=== PATIENT | female | born 1990 | race Caucasian/White ===

== ENCOUNTER 2018-07-12 14:53 | Emergency (ER) | payer MEDICAID ==
--- NOTE | 2018-07-12 15:27 | EDM.PDOC ---
ED HPI GENERAL MEDICAL PROBLEM - General Chief Complaint: WAIST PRESSER Problem Stated Complaint: SPOTTING, MIGHT BE Time Seen by Provider: 07/12/18 15:21 Source of Information: Reports: Patient History Limitations: Reports: No Limitations - History of Present Illness INITIAL COMMENTS - FREE TEXT/NARRATIVE: HISTORY AND PHYSICAL: History of present illness: Patient is a 28-year-old female who presents to the emergency room with concerns of vaginal bleeding during . She states yesterday she took 4 home test all of which were positive. She noticed some light bleeding last evening which has continued into today. He has had some mild nausea and "upset stomach" She denies any fever, chills, chest pain, shortness of breath or cough. Denies any abdominal pain, vomiting, diarrhea, constipation or dysuria. She states she has had multiple problems with previous IUDs. February 2018 she had her last IUD "fall out". Since then she has had some days of light bleeding, which she stated "could have been my period" in March. She normally has irregular periods. Her OBGYN has instructed her how to use a diaphragm to prevent . , P:3 Review of systems: As per history of present illness and below otherwise all systems reviewed and negative. Past medical history: As per history of present illness and as reviewed below otherwise noncontributory. Surgical history: As per history of present illness and as reviewed below otherwise noncontributory. Social history: No reported history of drug or alcohol abuse. Family history: As per history of present illness and as reviewed below otherwise noncontributory. Physical exam: General: Well developed and well-nourished 28-year-old female. Alert and oriented. Nontoxic appearing and in no acute distress. HEENT: Atraumatic, normocephalic, pupils equal and reactive bilaterally, negative for conjunctival pallor or scleral icterus, mucous membranes moist, throat clear, neck supple, nontender, trachea midline. No drooling or trismus noted. No meningeal signs Lungs: Clear to auscultation, breath sounds equal bilaterally, chest nontender. Heart: S1S2, regular rate and rhythm without overt murmur Abdomen: Soft, nondistended, nontender. Negative for masses or hepatosplenomegaly. Negative for costovertebral tenderness. Pelvis: Stable nontender. Genitourinary: This was done with a courtesy car driver at the bedside and consent by the patient. External genitalia is within normal limits. Ears minimal amount of blood in the vaginal canal. The cervical os is closed with no current bleeding coming from the os. Patient tolerated well. Rectal: Deferred. Skin: Intact, warm, dry. No lesions or rashes noted. Extremities: Atraumatic, negative for cords or calf pain. Neurovascular unremarkable. Neuro: Awake, alert, oriented. Cranial nerves II through XII unremarkable. Cerebellum unremarkable. Motor and sensory unremarkable throughout. Exam nonfocal. Notes: O negative; will receive Rhogam injection. Otherwise labs within normal limits. Pelvic ultrasound shows a single IUP with tiny pole measuring 1.6 mm. Cardiac activity is not definitively seen as of yet. There is no subchorionic bleeding. She has measuring 5 weeks and 2 days. Quantitative hCG is 3045. I did share this information with the patient and informed her she needs to follow up with a primary care or WAIST PRESSER to have this repeated in 2 days. She states she has an appointment tomorrow with Dr. Talbot at [facility] and will inform her of today's visit. Supportive care measures were reviewed and discussed. Signs and symptoms that would prompt her to return to the emergency room were reviewed. She denies any further questions or concerns. Will be discharged home. Diagnostics: CBC, CMP, UA, urine , HCG quant, OB 1st trimester US, AB/RH Therapeutics: Salma ODT, RhoGam Impression: Threatened Miscarriage Plan: 1. Pelvic Rest (no sex, no tampons, etc...) until cleared by your OBGYN. 2. Tylenol as needed for pain management. 3. Please start a vitamin once daily. Establish with an OBGYN for care, call Friday to set up this appointment. 4. Have a quantitative HCG repeated on 07/14/2018 5. Return to the ED as needed and as discussed. Definitive disposition and diagnosis as appropriate pending reevaluation and review of above. Onset: Today Duration: Hour(s): - Related Data Allergies Allergy/AdvReac Type Severity Reaction Status Date / Time No Known Allergies Allergy Verified 05/17/18 11:14 Home Meds: Home Meds Zonisamide [Zonegran] 400 mg PO BID 05/17/18 [History] Folic Acid 1 tab PO DAILY 07/12/18 [History] Vit #108/Iron/FA [ One Tablet] 1 tab PO DAILY 07/12/18 [History ] Past Medical History - Past Health History Medical/Surgical History: Denies Medical/Surgical History HEENT History: Reports: None Cardiovascular History: Reports: None Respiratory History: Reports: None Gastrointestinal History: Reports: None Genitourinary History: Reports: None WAIST PRESSER History: Reports: Musculoskeletal History: Reports: None Neurological History: Reports: Other (See Below) Other Neuro History: Hx of epilepsy. Psychiatric History: Reports: None Endocrine/Metabolic History: Reports: None Dermatologic History: Reports: None - Infectious Disease History Infectious Disease History: Reports: Chicken Pox - Past Surgical History HEENT Surgical History: Reports: Oral Surgery Social & Family History - Family History Family Medical History: Noncontributory - Tobacco Use Smoking Status *Q: Current Every Day Smoker Years of Tobacco use: 15 Packs/Tins Daily: 0.5 Tobacco Use Comment: for the past 2 weeks 1-2 cigarettes per day - Caffeine Use Caffeine Use: Reports: Coffee - Recreational Drug Use Recreational Drug Use: No ED ROS GENERAL - Review of Systems Review Of Systems: ROS reveals no pertinent complaints other than HPI. ED EXAM - Physical Exam Exam: See Below Course - Vital Signs Last Recorded V/S: Last Vital Signs Temp 98.0 F 07/12/18 15:02 Pulse 99 07/12/18 15:02 Resp 16 07/12/18 15:02 BP 132/81 07/12/18 15:02 Pulse Ox 99 07/12/18 15:02 - Orders/Labs/Meds Orders: Active Orders 24 hr Category Date Time Status OB 1st Tri Sgl 1st Gest [US] Stat Exams 07/12/18 15:43 Taken CULTURE URINE [RM] Stat Lab 07/12/18 15:32 Received RH IMMUNE GLOBULIN [BBK] Routine Lab 07/12/18 15:43 Results Labs: Laboratory Tests 07/12/18 07/12/18 07/12/18 Range/Units 15:08 15:08 15:08 WBC 6.07 (4.0-11.0) K/uL RBC 4.89 (4.30-5.90) M/uL Hgb 13.8 (12.0-16.0) g/dL Hct 40.5 (36.0-46.0) % MCV 82.8 (80.0-98.0) fL MCH 28.2 (27.0-32.0) pg MCHC 34.1 (31.0-37.0) g/dL RDW Std Deviation 37.3 (28.0-62.0) fl RDW Coeff of Bret 12 (11.0-15.0) % Plt Count 199 (150-400) K/uL MPV 10.60 (7.40-12.00) fL Neut % (Auto) 50.0 (48.0-80.0) % Lymph % (Auto) 38.2 (16.0-40.0) % [place] % (Auto) 10.0 (0.0-15.0) % Eos % (Auto) 1.5 (0.0-7.0) % Baso % (Auto) 0.3 (0.0-1.5) % Neut # (Auto) 3.0 (1.4-5.7) K/uL Lymph # (Auto) 2.3 (0.6-2.4) K/uL [place] # (Auto) 0.6 (0.0-0.8) K/uL Eos # (Auto) 0.1 (0.0-0.7) K/uL Baso # (Auto) 0.0 (0.0-0.1) K/uL Nucleated RBC % 0.0 /100WBC Nucleated RBCs # 0 K/uL Sodium 141 (136-145) mmol/L Potassium 3.9 (3.5-5.1) mmol/L Chloride 108 H (98-107) mmol/L Carbon Dioxide 22.7 (21.0-32.0) mmol/L BUN 9 (7.0-18.0) mg/dL Creatinine 0.8 (0.6-1.0) mg/dL Est Cr Clr Drug Dosing 81.33 mL/min Estimated GFR (MDRD) > 60.0 ml/min Glucose 113 H (74-106) mg/dL Calcium 9.0 (8.5-10.1) mg/dL Total Bilirubin 0.6 (0.2-1.0) mg/dL AST 14 L (15-37) IU/L ALT 19 (14-63) IU/L Alkaline Phosphatase 67 (46-116) U/L Total Protein 6.8 (6.4-8.2) g/dL Albumin 3.8 (3.4-5.0) g/dL Globulin 3.0 (2.0-3.5) g/dL Albumin/Globulin Ratio 1.3 (1.3-2.8) HCG, Quant 3045.0 mIU/mL Urine Color Urine Appearance Urine pH (5.0-8.0) Ur Specific [place] (1.001-1.035) Urine Protein (NEGATIVE) mg/dL Urine Glucose (UA) (NEGATIVE) mg/dL Urine Ketones (NEGATIVE) mg/dL Urine Occult Blood (NEGATIVE) Urine Nitrite (NEGATIVE) Urine Bilirubin (NEGATIVE) Urine Urobilinogen (<2.0) EU/dL Ur Leukocyte Esterase (NEGATIVE) Urine RBC (0-2/HPF) Urine WBC (0-5/HPF) Ur Epithelial Cells (NONE-FEW) Urine Bacteria (NEGATIVE) Urine HCG, Qual (NEGATIVE) Blood Type 07/12/18 07/12/18 07/12/18 Range/Units 15:08 15:30 15:30 WBC (4.0-11.0) K/uL RBC (4.30-5.90) M/uL Hgb (12.0-16.0) g/dL Hct (36.0-46.0) % MCV (80.0-98.0) fL MCH (27.0-32.0) pg MCHC (31.0-37.0) g/dL RDW Std Deviation (28.0-62.0) fl RDW Coeff of Bret (11.0-15.0) % Plt Count (150-400) K/uL MPV (7.40-12.00) fL Neut % (Auto) (48.0-80.0) % Lymph % (Auto) (16.0-40.0) % [place] % (Auto) (0.0-15.0) % Eos % (Auto) (0.0-7.0) % Baso % (Auto) (0.0-1.5) % Neut # (Auto) (1.4-5.7) K/uL Lymph # (Auto) (0.6-2.4) K/uL [place] # (Auto) (0.0-0.8) K/uL Eos # (Auto) (0.0-0.7) K/uL Baso # (Auto) (0.0-0.1) K/uL Nucleated RBC % /100WBC Nucleated RBCs # K/uL Sodium (136-145) mmol/L Potassium (3.5-5.1) mmol/L Chloride (98-107) mmol/L Carbon Dioxide (21.0-32.0) mmol/L BUN (7.0-18.0) mg/dL Creatinine (0.6-1.0) mg/dL Est Cr Clr Drug Dosing mL/min Estimated GFR (MDRD) ml/min Glucose (74-106) mg/dL Calcium (8.5-10.1) mg/dL Total Bilirubin (0.2-1.0) mg/dL AST (15-37) IU/L ALT (14-63) IU/L Alkaline Phosphatase (46-116) U/L Total Protein (6.4-8.2) g/dL Albumin (3.4-5.0) g/dL Globulin (2.0-3.5) g/dL Albumin/Globulin Ratio (1.3-2.8) HCG, Quant mIU/mL Urine Color YELLOW Urine Appearance CLEAR Urine pH 7.0 (5.0-8.0) Ur Specific [place] 1.025 (1.001-1.035) Urine Protein NEGATIVE (NEGATIVE) mg/dL Urine Glucose (UA) NEGATIVE (NEGATIVE) mg/dL Urine Ketones NEGATIVE (NEGATIVE) mg/dL Urine Occult Blood LARGE H (NEGATIVE) Urine Nitrite NEGATIVE (NEGATIVE) Urine Bilirubin NEGATIVE (NEGATIVE) Urine Urobilinogen 0.2 (<2.0) EU/dL Ur Leukocyte Esterase NEGATIVE (NEGATIVE) Urine RBC 15-20 (0-2/HPF) Urine WBC 0-1 (0-5/HPF) Ur Epithelial Cells OCCASIONAL (NONE-FEW) Urine Bacteria FEW (NEGATIVE) Urine HCG, Qual POSITIVE (NEGATIVE) Blood Type O NEGATIVE Meds: Medications Discontinued Medications Generic Name Dose Route Start Last Admin Trade Name Freq PRN Reason Stop Dose Admin Ondansetron HCl 4 mg 07/12/18 15:49 07/12/18 15:52 Zofran Odt PO 07/12/18 15:50 4 mg ONETIME ONE Administration Rho Immune Globulin 300 mcg 07/12/18 17:02 Rhophylac IM 07/12/18 17:03 ONETIME ONE Departure - Departure Time of Disposition: 17:12 Disposition: Home, Self-Care 01 Clinical Impression: Threatened miscarriage in early - Discharge Information Instructions: Vaginal Bleeding During , First Trimester Referrals: PCP,None [Primary Care Provider] - Forms: ED Department Discharge Additional Instructions: General dischargeThe following information is given to patients seen in the emergency department who are being discharged to home. This information is to outline your options for follow-up care. We provide all patients seen in our emergency department with a follow-up referral. The need for follow-up, as well as the timing and circumstances, are variable depending upon the specifics of your emergency department visit. If you don't have a primary care physician on staff, we will provide you with a referral. We always advise you to contact your personal physician following an emergency department visit to inform them of the circumstance of the visit and for follow-up with them and/or the need for any referrals to a consulting specialist. The emergency department will also refer you to a specialist when appropriate. This referral assures that you have the opportunity for follow-up care with a specialist. All of these measure are taken in an effort to provide you with optimal care, which includes your follow-up. Under all circumstances we always encourage you to contact your private physician who remains a resource for coordinating your care. When calling for follow-up care, please make the office aware that this follow-up is from your recent emergency room visit. If for any reason you are refused follow-up, please contact the [facility] Emergency Department at and asked to speak to the emergency department charge nurse. [facility] [address] [place] [id number] [address] [address] 1. Pelvic Rest (no sex, no tampons, etc...) until cleared by your OBGYN. 2. Tylenol as needed for pain management. 3. Please start a vitamin once daily. Establish with an OBGYN for care, call Friday to set up this appointment. 4. Have a quantitative HCG repeated on 07/14/2018 5. Return to the ED as needed and as discussed. - My Orders Last 24 Hours: My Active Orders 07/12/18 15:32 CULTURE URINE [RM] Stat 07/12/18 15:43 OB 1st Tri Sgl 1st Gest [US] Stat - Assessment/Plan Last 24 Hours: My Active Orders 07/12/18 15:32 CULTURE URINE [RM] Stat 07/12/18 15:43 OB 1st Tri Sgl 1st Gest [US] Stat
[2018-07-12 15:42] LABS: CHLORIDE,CL 108 mmol/L (98-107); SODIUM,NA 141 mmol/L (136-145)
[2018-07-12] MEDS ORDERED: Ondansetron 4 MG Tab.DIS PO ONE (15:49)
[2018-07-12] MEDS ORDERED: Rho(D) Immune Globulin 300 MCG/2 ML Syringe IM ONE (17:02)
--- NOTE | 2018-07-13 16:10 | US ---
EXAM DATE: 07/12/18 PATIENT'S AGE: 28 Patient: DENZEL CABRERA Facility: [place], [place] Site . Site : 1990 Study: US OB Pelvis [id number]/[id number] 4:25:55 PM Ordering Physician: Doctor Costa Final Report: HISTORY: Vaginal bleeding. TECHNIQUE: Obstetric ultrasound with transvaginal imaging. COMPARISON: No prior. FINDINGS: There is a single intrauterine gestation within the upper endometrial region which demonstrates a crown-rump length of 1.6 mm. A yolk sac is present. No definite cardiac activity detected. pole is too small for accurate dating. Gestational age based on mean sac diameter of 7 mm is 5 weeks, 2 days with an MICHAEL of 03/12/2019. No subchorionic bleed. - The ovaries are unremarkable. No complex adnexal mass. No significant pelvic free fluid. IMPRESSION: 1. Single intrauterine gestation with a tiny pole measuring 1.6 mm. Cardiac activity is not definitively seen as of yet. Given the small size of the pole, recommend followup ultrasound to re-evaluate for cardiac activity. 2. No subchorionic bleed. Dictated by Cordell Gonzalez MD @ 07/12/2018 4:50:23 PM Dictated by: Cordell Gonzalez MD @ 07/12/2018 16:50:29 (Electronic Signature) Report Signed by Proxy. [id number]
== END 2018-07-12 18:00 | disposition home or self-care (01) ==
LOC: MW.ED 14:53
DX: O20.0 Threatened abortion (principal); F17.210 Nicotine dependence, cigarettes, uncomplicated; Z3A.01 Less than 8 weeks gestation of pregnancy
CPT/HCPCS: 36415; 76801; 80053; 81001; 81025; 84702; 85025; 86850; 86900; 86901; 87086; 99284; A9270; J2792; 36430; 99283

== ENCOUNTER 2018-07-14 12:39 | Emergency (ER) | payer MEDICAID ==
--- NOTE | 2018-07-14 13:41 | EDM.PDOC ---
ED HPI GENERAL MEDICAL PROBLEM - General Chief Complaint: ATTENDING ANESTHESIOLOGIST Problem Stated Complaint: POSSIBLE MISCARRIAGE Time Seen by Provider: 07/14/18 13:38 Source of Information: Reports: Patient History Limitations: Reports: No Limitations - History of Present Illness INITIAL COMMENTS - FREE TEXT/NARRATIVE: HISTORY AND PHYSICAL: History of present illness: Patient is a 28-year-old female here for miscarriage. She was seen 2 days ago with vaginal bleeding and in approximately 5 weeks and 2 days . Ultrasound showed a single intrauterine with a tiny pole measuring 1.6 mm and no cardiac activity definitively seen. Patient did receive Rhogam. She states that yesterday she was having intermittent bleeding and she passed tissue appeared to be a sac when she uses the restroom. She states that since then she's been having a lot of pelvic cramping. She reports he felt nauseous and has had loss of appetite but denies any vomiting, diarrhea, fevers, chills. Review of systems: As per history of present illness and below otherwise all systems reviewed and negative. Past medical history: As per history of present illness and as reviewed below otherwise noncontributory. Surgical history: As per history of present illness and as reviewed below otherwise noncontributory. Social history: No reported history of drug or alcohol abuse. Family history: As per history of present illness and as reviewed below otherwise noncontributory. Physical exam: General: Patient sitting comfortably in no acute distress and nontoxic appearing HEENT: Atraumatic, normocephalic, pupils reactive, negative for conjunctival pallor or scleral icterus, mucous membranes moist, throat clear, neck supple, nontender, trachea midline. No meningeal signs. Lungs: Clear to auscultation, breath sounds equal bilaterally, chest nontender. Heart: S1S2, regular, negative for clicks, rubs, or overt murmur. Abdomen: Mild suprapubic tenderness. Soft, nondistended. Negative for masses or hepatosplenomegaly. Negative for costovertebral tenderness. Pelvis: Stable nontender. Genitourinary: Cervical os is closed. There is blood noted in the vaginal canal Rectal: Deferred. Extremities: Atraumatic, negative for cords or calf pain. Neurovascular unremarkable. Neuro: Awake, alert, oriented. Cranial nerves II through XII unremarkable. Cerebellum unremarkable. Motor and sensory unremarkable throughout. Exam nonfocal. Notes: Diagnostics: CBC, HCG quant, UA Therapeutics: None Prescriptions: None Impression: Spontaneous Plan: 1. May take tylenol or motrin as needed for pain 2. Follow up with Kayce Castillo at scheduled appointment 3. Return to ED as needed as discussed Definitive disposition and diagnosis as appropriate pending reevaluation and review of above. lower abdomen Pain Score (Numeric/FACES): 4 - Related Data Allergies Allergy/AdvReac Type Severity Reaction Status Date / Time No Known Allergies Allergy Verified 07/14/18 13:05 Home Meds: Home Meds Zonisamide [Zonegran] 400 mg PO BID 05/17/18 [History] Folic Acid 1 tab PO DAILY 07/12/18 [History] Vit #108/Iron/FA [ One Tablet] 1 tab PO DAILY 07/12/18 [History ] Past Medical History - Past Health History Medical/Surgical History: Denies Medical/Surgical History HEENT History: Reports: None Cardiovascular History: Reports: None Respiratory History: Reports: None Gastrointestinal History: Reports: None Genitourinary History: Reports: None ATTENDING ANESTHESIOLOGIST History: Reports: Musculoskeletal History: Reports: None Neurological History: Reports: Other (See Below) Other Neuro History: Hx of epilepsy. Psychiatric History: Reports: None Endocrine/Metabolic History: Reports: None Dermatologic History: Reports: None - Infectious Disease History Infectious Disease History: Reports: Chicken Pox - Past Surgical History HEENT Surgical History: Reports: Oral Surgery Social & Family History - Family History Family Medical History: Noncontributory - Tobacco Use Smoking Status *Q: Current Every Day Smoker Years of Tobacco use: 16 Packs/Tins Daily: 0.1 - Caffeine Use Caffeine Use: Reports: Coffee, Soda - Recreational Drug Use Recreational Drug Use: No ED ROS GENERAL - Review of Systems Review Of Systems: ROS reveals no pertinent complaints other than HPI. ED EXAM - Physical Exam Exam: See Below (see dictation) Course - Vital Signs Last Recorded V/S: Last Vital Signs Temp 36.6 C 07/14/18 12:59 Pulse 77 07/14/18 12:59 Resp 18 07/14/18 12:59 BP 130/84 07/14/18 12:59 Pulse Ox 97 07/14/18 12:59 - Orders/Labs/Meds Labs: Laboratory Tests 07/14/18 07/14/18 07/14/18 Range/Units 13:29 13:29 14:11 WBC 4.86 (4.0-11.0) K/uL RBC 4.86 (4.30-5.90) M/uL Hgb 14.0 (12.0-16.0) g/dL Hct 40.9 (36.0-46.0) % MCV 84.2 (80.0-98.0) fL MCH 28.8 (27.0-32.0) pg MCHC 34.2 (31.0-37.0) g/dL RDW Std Deviation 38.0 (28.0-62.0) fl RDW Coeff of Bret 13 (11.0-15.0) % Plt Count 168 (150-400) K/uL MPV 10.30 (7.40-12.00) fL Neut % (Auto) 52.3 (48.0-80.0) % Lymph % (Auto) 35.4 (16.0-40.0) % [place] % (Auto) 10.9 (0.0-15.0) % Eos % (Auto) 1.2 (0.0-7.0) % Baso % (Auto) 0.2 (0.0-1.5) % Neut # (Auto) 2.5 (1.4-5.7) K/uL Lymph # (Auto) 1.7 (0.6-2.4) K/uL [place] # (Auto) 0.5 (0.0-0.8) K/uL Eos # (Auto) 0.1 (0.0-0.7) K/uL Baso # (Auto) 0.0 (0.0-0.1) K/uL Nucleated RBC % 0.0 /100WBC Nucleated RBCs # 0 K/uL HCG, Quant 1335.0 mIU/mL Urine Color DARK YELLOW Urine Appearance CLOUDY Urine pH 6.0 (5.0-8.0) Ur Specific [place] >= 1.030 (1.001-1.035) Urine Protein TRACE (NEGATIVE) mg/dL Urine Glucose (UA) NEGATIVE (NEGATIVE) mg/dL Urine Ketones NEGATIVE (NEGATIVE) mg/dL Urine Occult Blood LARGE H (NEGATIVE) Urine Nitrite NEGATIVE (NEGATIVE) Urine Bilirubin NEGATIVE (NEGATIVE) Urine Urobilinogen 0.2 (<2.0) EU/dL Ur Leukocyte Esterase TRACE (NEGATIVE) Urine RBC TOO NUMEROUS TO CT H (0-2/HPF) Urine WBC 0-2 (0-5/HPF) Ur Epithelial Cells FEW (NONE-FEW) Urine Bacteria OCCASIONAL (NEGATIVE) Urine Mucus MODERATE (NONE-MOD) Departure - Departure Time of Disposition: 14:35 Disposition: Home, Self-Care 01 Condition: Good Clinical Impression: Miscarriage, Pelvic pain - Discharge Information Referrals: Olive Talbot DO [Primary Care Provider] - Forms: ED Department Discharge Additional Instructions: The following information is given to patients seen in the emergency department who are being discharged to home. This information is to outline your options for follow-up care. We provide all patients seen in our emergency department with a follow-up referral. The need for follow-up, as well as the timing and circumstances, are variable depending upon the specifics of your emergency department visit. If you don't have a primary care physician on staff, we will provide you with a referral. We always advise you to contact your personal physician following an emergency department visit to inform them of the circumstance of the visit and for follow-up with them and/or the need for any referrals to a consulting specialist. The emergency department will also refer you to a specialist when appropriate. This referral assures that you have the opportunity for follow-up care with a specialist. All of these measure are taken in an effort to provide you with optimal care, which includes your follow-up. Under all circumstances we always encourage you to contact your private physician who remains a resource for coordinating your care. When calling for follow-up care, please make the office aware that this follow-up is from your recent emergency room visit. If for any reason you are refused follow-up, please contact the Emergency Department at and asked to speak to the emergency department charge nurse. [facility] [address] [place] [address] 1. May take tylenol or motrin as needed for pain 2. Follow up with Kayce Castillo at scheduled appointment 3. Return to ED as needed as discussed
== END 2018-07-14 14:55 | disposition home or self-care (01) ==
LOC: MW.ED 12:39
DX: O03.9 Complete or unspecified spontaneous abortion without complication (principal); F17.210 Nicotine dependence, cigarettes, uncomplicated
CPT/HCPCS: 36415; 81001; 84702; 85025; 99283; 99284